=== PATIENT | female | born 1945 | race Caucasian/White ===

== ENCOUNTER 2023-01-02 08:41 | Outpatient (CLI) | payer MEDICARE, SELFPAY ==
--- NOTE | ~2023-01-02 | XR_ITS ---
Clinical Indication: Cough PA and lateral views of the chest: Comparison: None Findings: Calcified right basilar granuloma noted. The lungs are otherwise clear, without evidence of focal consolidation or pleural effusion. Calcified right paratracheal lymph nodes noted. Cardiomedia stinal silhouette is within normal limits. Left shoulder arthroplasty noted. Impression: No acute abnormality. Evidence of prior granulomatous disease. Reviewed, dictated and finalized at location . Impression: No acute abnormality. Evidence of prior granulomatous disease.
== END 2023-01-02 08:42 | disposition home or self-care (01) ==
PROVIDERS: PCP Family Medicine; Visit Provider Nurse Practitioner Family
DX: R05.9 Cough, unspecified (principal)
CPT/HCPCS: 71046

== ENCOUNTER 2025-04-15 15:05 | Outpatient (CLI) | payer MEDICARE, SELFPAY ==
--- NOTE | ~2025-04-15 | XR_ITS ---
EXAMINATION: XR shoulder RT min 2V, 04/15/2025 15:24 CDT HISTORY: Primary osteoarthritis, right shoulder COMPARISON: No comparisons available. Findings: No acute fracture or malalignment. Severe degenerative changes with chondrocalcinosis and small joint effusion Soft tissues unremarkable. Impression: No acute fracture or malalignment. Reviewed, dictated and finalized at location P. Impression: No acute fracture or malalignment.
== END 2025-04-15 15:06 | disposition home or self-care (01) ==
PROVIDERS: PCP Nurse Practitioner Family; Visit Provider Nurse Practitioner Family
DX: M19.011 Primary osteoarthritis, right shoulder (principal); M11.211 Other chondrocalcinosis, right shoulder; M25.411 Effusion, right shoulder
CPT/HCPCS: 73030